=== PATIENT | female | born 1970 | race Caucasian/White ===

== ENCOUNTER 2021-09-27 01:09 | Inpatient (IN) | payer BC ==
[2021-09-27] VITALS (18 sets, daily range): BP systolic 93–135; BP diastolic 53–81
[~2021-09-27] VITALS: Ht 167.6 cm; Wt 63.5 kg
[2021-09-27 02:02] LABS: URINE HCG NEGATIVE (NEG)
[2021-09-27] MEDS ORDERED: ondansetron/PF 4mg/2ml inj IV ONE (02:05)
[2021-09-27] MEDS ORDERED: normal saline 1000ML IV soln IVB ONE (02:05)
[2021-09-27 02:12] LABS: COLOR,URINE YELLOW (Yellow); UA COLLECTION TYPE CLN CATCH MIDSTREAM
[2021-09-27] MEDS: morphine 4 MG/ML inj SYRINge IV PRN ×2 (02:12→02:41)
[2021-09-27 02:13] LABS: CLARITY,URINE SLIGHTLY CLOUDY (Clear); GLUCOSE, URINE NEGATIVE (Neg); KETONES,URINE NEGATIVE (Neg); LEUKOCYTE ESTERASE ,URINE TRACE (Neg); NITRITES, URINE NEGATIVE (Neg); OCCULT BLOOD,URINE SMALL (Neg); PROTEIN,URINE NEGATIVE (Neg); UROBILINOGEN,URINE 0.2 E.U/dL (0.2-1.0)
[2021-09-27 02:18] LABS: RBC,URINE 0-2 /HPF (0-2); WBC,URINE 0-4 /HPF (0-4)
[2021-09-27 02:19] LABS: BACTERIA,URINE NONE SEEN /HPF (Neg); MUCUS STRANDS MODERATE /LPF (Neg); SQUAMOUS EPITHELIAL CELL,UR FEW /LPF (FEW)
[2021-09-27 02:27] LABS: BASOPHILS % (AUTO) 0.5 % (0-1); EOSINOPHILS # (AUTO) 0.3 X10'3 (0-0.9); EOSINOPHILS % (AUTO) 4.3 % (0-6); HEMOGLOBIN 12.6 g/dl (12.0-16.0); LYMPHOCYTES % (AUTO) 30.1 % (21-51); MEAN CORPUSCULAR HEMOGLOBIN 32.8 PG (27.0-31.0); MEAN CORPUSCULAR HGB CONC 35.1 g/dL (33.0-36.5); MEAN CORPUSCULAR VOLUME 93.4 FL (78-98); MEAN PLATELET VOLUME 8.7 FL (7.4-10.4); MONOCYTES # (AUTO) 0.5 X10'3 (0-0.9); MONOCYTES % (AUTO) 8.1 % (2-12); NEUTROPHILS # (AUTO) 3.8 X10'3 (1.8-7.7); PLATELET COUNT 279 X10'3 (140-440); RED BLOOD COUNT 3.85 X10'6 (4.20-5.60); RED CELL DISTRIBUTION WIDTH 11.7 % (11.5-14.5); WHITE BLOOD COUNT 6.7 X10'3 (4.5-11.0)
[2021-09-27 02:33] LABS: ALANINE AMINOTRANSFERASE 23 U/L (12-78); ALBUMIN 4.2 G/DL (3.4-5.0); ALBUMIN/GLOBULIN RATIO 1.4 (1.1-1.5); ALKALINE PHOSPHATASE 88 IU/L (46-116); ANION GAP 8 (8-16); ASPARTATE AMINO TRANSFERASE 11 U/L (10-37); BILIRUBIN,TOTAL 0.2 MG/DL (0.1-1.0); BLOOD UREA NITROGEN 19 MG/DL (7-18); BUN/CREATININE RATIO 17.3 (6.6-38.0); CALCIUM 9.3 MG/DL (8.5-10.1); CHLORIDE 106 MMOL/L (99-107); GLUCOSE 108 MG/DL (70-104); POTASSIUM 3.4 MMOL/L (3.5-5.1); SODIUM 143 MMOL/L (135-145); TOTAL CARBON DIOXIDE 29.5 MMOL/L (24-32); TOTAL PROTEIN 7.2 G/DL (6.4-8.2); eGFR 52 ML/MIN
[2021-09-27 02:36] LABS: LIPASE 200 U/L (73-393); TROPONIN I < 0.04 NG/ML (0.0-0.05)
[2021-09-27] MEDS ORDERED: piperacillin/tazo 3.375gm/50ml 50 ML IV ONE (03:00)
--- NOTE | 2021-09-27 03:23 | NUR ---
DR ANNE CALLED BACK TO SPEAK WITH DR Peralta REGARDING ADMISSION.
[2021-09-27] MEDS ORDERED: SERT25TA PO (03:34)
[2021-09-27] MEDS ORDERED: ZIPR40CA2 PO (03:34)
[2021-09-27] MEDS ORDERED: LAMO100T40 PO (03:34)
[2021-09-27] MEDS ORDERED: BUPR-317 PO (03:34)
[2021-09-27] MEDS ORDERED: CLON-528 PO (03:34)
[2021-09-27] MEDS ORDERED: LAMO100T2 PO (03:34)
[2021-09-27] MEDS ORDERED: ondansetron/PF 4mg/2ml inj IV PRN ×3 (03:40→17:35)
[2021-09-27] MEDS ORDERED: mag hydrox/Alum hydrox/simeth 30ml oral suspension PO PRN (03:40)
[2021-09-27] MEDS ORDERED: magnesium 4gm in 100ml NS 100 ML IV PRN (03:40)
[2021-09-27] MEDS ORDERED: HYDROcodone/acetaminophen 10/325mg tab PO PRN (03:40)
[2021-09-27] MEDS ORDERED: potassium Cl 40MEQ/1/2NS 520ml 520 ML IV PRN ×2 (03:40)
[2021-09-27] MEDS ORDERED: magnesium hydroxide 30ml (MOM) UD suspension PO PRN (03:40)
[2021-09-27] MEDS ORDERED: magnesium Cl slow-release 64mg tablet PO PRN (03:40)
[2021-09-27] MEDS ORDERED: magnesium 2GM in 50ml NS 50 ML IV PRN (03:40)
[2021-09-27] MEDS ORDERED: potassium Cl 20 mEq SR tablet PO PRN ×2 (03:40)
[2021-09-27] MEDS ORDERED: acetaminophen 325mg tablet PO PRN ×2 (03:40)
[2021-09-27] MEDS ORDERED: morphine 2 MG/ML inj. syringe IV PRN ×3 (03:40→15:30)
[2021-09-27] MEDS: HYDROmorphone inj. 0.5 MG/0.5 ML DISP.SYRIN IV PRN ×2 (03:53→13:48)
[2021-09-27] MEDS: normal saline 1000ml 1,000 ML IV SCH ×3 (03:57→21:02)
[2021-09-27] MEDS ORDERED: LEVO50TA PO (04:02)
--- NOTE | 2021-09-27 04:11 | NUR ---
SEEING PATIENT AT 0410.
[2021-09-27] MEDS ORDERED: ketorolac trometh. 30mg/ml inj. IV ONE (06:40)
[2021-09-27] MEDS ORDERED: pantoprazole 40 MG vial IV ONE (06:40)
[2021-09-27] MEDS: K and/or MAG REPLACEMENT MC SCH ×2 (08:32→20:00)
[2021-09-27] MEDS: heparin, porcine 5000 units/ml vial SQ SCH ×2 (08:37→20:34)
[2021-09-27] MEDS: piperacillin/tazo 3.375gm/50ml 50 ML IV SCH ×2 (13:04→20:33)
[2021-09-27] MEDS ORDERED: FLU VACC QS2021-22(6MOS UP)/PF 60 MCG/0.5 ML SYRINGE IM ONE (15:10)
[2021-09-27] MEDS ORDERED: ringers solution, lacted 1,000 ML IV SCH (15:30)
[2021-09-27] MEDS ORDERED: hydrALAZINE 20mg/ml inj. IV PRN (15:30)
[2021-09-27] MEDS ORDERED: morphine 4 MG/ML inj SYRINge IV PRN (15:30)
[2021-09-27] MEDS ORDERED: fentaNYL/PF 50MCG/1 ML 2ML syringe IV PRN (15:30)
[2021-09-27] MEDS ORDERED: labetalol 20mg/4ml (5mg/ml) syringe IV PRN (15:30)
[2021-09-27] MEDS ORDERED: BUPIVAcaine/PF 2.5 mg/ml (0.25%) 30ml vial ONE ×2 (15:48→16:41)
[2021-09-27] MEDS ORDERED: dexamethasone sod phosphate 10mg/ml inj ONE (16:17)
[2021-09-27] MEDS ORDERED: sevoflurane 250ml liquid IH ONE (16:17)
[2021-09-27] MEDS ORDERED: midazolam 1 mg/ML 2ml injection ONE (16:20)
[2021-09-27] MEDS ORDERED: fentaNYL/PF 50MCG/1 ML 2ML syringe ONE ×2 (16:20→16:34)
[2021-09-27] MEDS ORDERED: LIDOcaine 2% (20mg/ml) 5ml vial ONE (16:21)
[2021-09-27] MEDS ORDERED: neostigmine methylsulfate 1 MG/ML 10ml vial ONE (16:21)
[2021-09-27] MEDS ORDERED: rocuronium 10mg/ml inj IV ONE (16:21)
[2021-09-27] MEDS ORDERED: propofol inj 20 ML IV ONE (16:21)
[2021-09-27] MEDS ORDERED: glycopyrrolate 0.2mg/ml inj ONE (16:21)
[2021-09-27] MEDS ORDERED: ondansetron/PF 4mg/2ml inj ONE (16:21)
[2021-09-27] MEDS ORDERED: acetaminophen 1,000mg/100ml IV 100 ML IV ONE (16:22)
[2021-09-27] MEDS ORDERED: naloxone 0.4 mg/ml inj IV PRN (17:35)
[2021-09-27] MEDS ORDERED: CADD PCA waste documentation MC PRN (17:35)
--- NOTE | 2021-09-27 17:38 | NUR ---
Received from OR via , accompanied by Anesthesiologist DR PRITCHARD and report given by Anesthesiolgist. AWAKENS TO VOICE. VITALS STABLE. DRESSINGS DI. STATES PAIN TO ABD. WILL MEDICATE. ABD SOFT.
[2021-09-27] MEDS: fentaNYL/PF 50MCG/1 ML 2ML syringe IV PRN (17:46)
[2021-09-27] MEDS ORDERED: ZIPR20CA12 PO (18:19)
[2021-09-27] MEDS ORDERED: CLON-369 PO (18:19)
[2021-09-27] MEDS ORDERED: LAMO100T PO (18:19)
[2021-09-27] MEDS ORDERED: TRAZ-251 PO (18:36)
--- NOTE | 2021-09-27 18:36 | NUR ---
Problems reprioritized. Patient report given, questions answered & plan of care reviewed with ryan ross.
[2021-09-27] MEDS ORDERED: clonazePAM 0.5mg tablet PO PRN (18:45)
--- NOTE | 2021-09-27 18:58 | NUR ---
Report called to receiving nurse. Transferred via BED Belongings . Special Issues communicated to receiving nurse.AWAKE AND ORIENTED. VITALS STABLE. DRESSINGS DI. STATES [AIN IMPROVING. TO SURGICAL RM 344A AT THIS TIME.
[2021-09-27] MEDS: potassium CL 20mEq in D5-1/2NS 1,000 ML IV SCH (20:33)
[2021-09-27] MEDS: lamoTRIgine 100mg tablet PO SCH (20:33)
[2021-09-27] MEDS: ziprasidone 20mg capsule PO SCH (20:34)
[2021-09-27] MEDS: HYDROcodone/acetaminophen 5mg/325mg tablet PO PRN (20:39)
[2021-09-27] MEDS ORDERED: temazepam 15mg capsule PO PRN (21:00)
[2021-09-27] MEDS ORDERED: traZODone 50mg tablet PO SCH (21:00)
[2021-09-28] MEDS: ceFOXitin inj 1,000 MG in normal saline 100ml IV soln 100 ML IV SCH ×2 (01:02→07:43)
[2021-09-28] MEDS: HYDROcodone/acetaminophen 5mg/325mg tablet PO PRN ×2 (01:02→10:03)
[2021-09-28 01:17] VITALS: BP 129/73
[2021-09-28 01:20] VITALS: BP 93/53
[2021-09-28] MEDS: potassium CL 20mEq in D5-1/2NS 1,000 ML IV SCH ×2 (01:35→09:35)
[2021-09-28] MEDS: piperacillin/tazo 3.375gm/50ml 50 ML IV SCH ×2 (02:52→12:35)
[2021-09-28 04:00] VITALS: BP 103/56
[2021-09-28] MEDS: fentaNYL/PF 50MCG/1 ML 2ML syringe IV PRN (04:28)
[2021-09-28 05:56] LABS: BASOPHILS % (AUTO) 0.2 % (0-1); EOSINOPHILS % (AUTO) 0.2 % (0-6); HEMOGLOBIN 11.3 g/dl (12.0-16.0); LYMPHOCYTES # (AUTO) 0.7 X10'3 (1.1-4.8); LYMPHOCYTES % (AUTO) 6.7 % (21-51); MEAN CORPUSCULAR HEMOGLOBIN 32.4 PG (27.0-31.0); MEAN CORPUSCULAR HGB CONC 34.3 g/dL (33.0-36.5); MEAN CORPUSCULAR VOLUME 94.5 FL (78-98); MEAN PLATELET VOLUME 8.8 FL (7.4-10.4); MONOCYTES # (AUTO) 0.6 X10'3 (0-0.9); MONOCYTES % (AUTO) 5.5 % (2-12); NEUTROPHILS % (AUTO) 87.4 % (42-75); PLATELET COUNT 207 X10'3 (140-440); RED BLOOD COUNT 3.49 X10'6 (4.20-5.60); WHITE BLOOD COUNT 10.3 X10'3 (4.5-11.0)
[2021-09-28 06:10] LABS: ALANINE AMINOTRANSFERASE 138 U/L (12-78); ALKALINE PHOSPHATASE 91 IU/L (46-116); ANION GAP 6 (8-16); ASPARTATE AMINO TRANSFERASE 74 U/L (10-37); BILIRUBIN,TOTAL 0.4 MG/DL (0.1-1.0); BLOOD UREA NITROGEN 10 MG/DL (7-18); BUN/CREATININE RATIO 10.6 (6.6-38.0); CALCIUM 8.5 MG/DL (8.5-10.1); CHLORIDE 107 MMOL/L (99-107); CREATININE 0.94 MG/DL (0.40-0.90); GLUCOSE 128 MG/DL (70-104); MAGNESIUM 1.8 MG/DL (1.5-2.4); SODIUM 140 MMOL/L (135-145); TOTAL CARBON DIOXIDE 27.1 MMOL/L (24-32); eGFR 63 ML/MIN
--- NOTE | 2021-09-28 06:20 | NUR ---
Problems reprioritized. Patient report given, questions answered & plan of care reviewed with FAROOQ Alegria.
[2021-09-28] MEDS ORDERED: levoTHYROXINE 25mcg tablet PO SCH (07:00)
[2021-09-28 07:12] VITALS: BP 91/48
[2021-09-28 07:30] VITALS: BP 106/53
[2021-09-28] MEDS: ziprasidone 20mg capsule PO SCH (07:35)
[2021-09-28] MEDS: lamoTRIgine 100mg tablet PO SCH ×2 (07:35→12:33)
[2021-09-28] MEDS: K and/or MAG REPLACEMENT MC SCH (07:36)
[2021-09-28] MEDS: heparin, porcine 5000 units/ml vial SQ SCH (07:37)
[2021-09-28] MEDS ORDERED: sertraline 50mg tablet PO SCH (08:00)
[2021-09-28] MEDS: normal saline 1000ml 1,000 ML IV SCH (09:40)
[2021-09-28 11:00] VITALS: BP 93/54
[2021-09-28] MEDS ORDERED: docusate sod 100mg capsule PO ONE (12:30)
--- NOTE | 2021-09-28 14:30 | NUR ---
pt discharged home with and will f/u with dr banda outpt. Pt has norco perscription in hand for pain. All belongings taken from room. IV taken out. Pt appears approriate for discharge. Pt states understanding of discharge instructions
== END 2021-09-28 14:40 | disposition home or self-care (01) | DRG 419 ==
LOC: ER 01:09 → ED HOLD 03:41 → SUR 3N 14:05
PROVIDERS: ADMIT Internal Medicine; ATTEND Internal Medicine
PROC: 0FT44ZZ Resection of Gallbladder, Percutaneous Endoscopic Approach (ICD-10-PCS; principal; 2021-09-27 16:17)
DX: K80.00 Calculus of gallbladder with acute cholecystitis without obstruction (principal); G47.00 Insomnia, unspecified; E03.9 Hypothyroidism, unspecified; F31.9 Bipolar disorder, unspecified; E87.6 Hypokalemia; N28.9 Disorder of kidney and ureter, unspecified; Z20.822 Contact with and (suspected) exposure to COVID-19; N18.30 Chronic kidney disease, stage 3 unspecified
CPT/HCPCS: 96361; 96374; 96375; 99285; Z7506; Z7508; 36415; 74176; 80053; 81001; 81025; 82948; 83605; 83690; 83735; 84484; 85025; 87040; 87088; 87635; 97161; 97530; A4215; A4618; A7000; C9113; G0378; J0131; J0694; J1100; J1170; J1644; J1885; J2001; J2250; J2270; J2405; J2543; J2704; J2710; J3010; J3480; J3490; J7030; J7120